=== PATIENT | female | born 1985 | race Hispanic/Latino ===

== ENCOUNTER 2017-01-17 08:52 | Day surgery (SDC) | payer OTHER ==
[2017-01-17 09:02] VITALS: BMI 27.1
[2017-01-17 09:37] VITALS: RESP 18
[2017-01-17 09:40] LABS: BASO # 0.1 K/uL (0.0-0.2); BASO % 1.3 % (0.0-2.0); EOS # 0.4 K/uL (0.0-0.7); EOS % 4.5 % (0.0-4.0); HEMATOCRIT 41.5 % (34.0-47.0); LYMPH # 3.5 K/uL (1.0-4.3); MEAN CORPUSCULAR HEMOGLOBIN 29.8 pg (27.0-31.0); MEAN CORPUSCULAR HGB CONC 33.1 g/dL (33.0-37.0); MEAN PLATELET VOLUME 7.7 fl (7.2-11.7); MONO # 0.4 K/uL (0.0-0.8); MONO % 3.9 % (0.0-10.0); NEUT # 5.3 K/uL (1.8-7.0); NEUT % 54.3 % (50.0-75.0); RED CELL DISTRIBUTION WIDTH 13.2 % (11.5-14.5); WHITE BLOOD COUNT 9.7 K/uL (4.8-10.8)
[2017-01-17 10:15] LABS: ALB/GLOB RATIO 1.5 (1.0-2.1); ALKALINE PHOSPHATASE 34 U/L (38-126); ALT/SGPT 54 U/L (9-52); AST/SGOT 40 U/L (14-36); BLOOD UREA NITROGEN 9 mg/dl (7-17); CALCIUM 9.8 mg/dL (8.4-10.2); CARBON DIOXIDE 23 mmol/L (22-30); CHLORIDE 106 mmol/L (98-107); GFR AFRICAN-AMERICAN > 60; GLUCOSE,RANDOM 96 mg/dL (65-105); POTASSIUM 4.2 MMOL/L (3.6-5.0); SODIUM 141 mmol/l (132-148); TOTAL PROTEIN 7.8 G/DL (6.3-8.2)
[2017-01-17] MEDS ORDERED: ePHEDrine 50 mg/ml Inj ONE (10:52)
[2017-01-17] MEDS ORDERED: Rocuronium 10 mg/ml (5 ml) ONE (10:52)
[2017-01-17] MEDS ORDERED: Succinylcholine 200 mg/10 ml Inj IV ONE (10:52)
[2017-01-17] MEDS ORDERED: Midazolam 2 MG/2 ML VIAL ONE (10:52)
[2017-01-17] MEDS ORDERED: Propofol 10 mg/ml Inj (20 ML) ONE (10:52)
[2017-01-17] MEDS ORDERED: Bupivacaine 0.5% Inj(30mL) ONE (11:03)
[2017-01-17] MEDS ORDERED: Lactated Ringer's 1,000 ML IV ONE ×3 (11:20→14:30)
[2017-01-17] MEDS ORDERED: Sodium Chloride 0.9% 100 ML IV ONE (11:30)
[2017-01-17] MEDS ORDERED: Neostigmine Methylsulfate 3mg/3ml Syringe IV ONE (13:13)
[2017-01-17] MEDS ORDERED: Lactated Ringer's 1,000 ML IV SCH (13:40)
[2017-01-17] MEDS ORDERED: Oxycodone/Acetaminophen 5/325 mg Tab PO PRN (14:02)
--- NOTE | 2017-01-17 14:05 | PCM.SURG1 ---
<Cayetano La - Last Filed: 01/17/17 14:03> Surgeon's Initial Post Op Note - Surgeon's Notes Surgeon: Dr. Pastrana Inspector Floor: Cayetano Flor PGY2, Fani FLORES Type of Anesthesia: General Endo Pre-Operative Diagnosis: Pelvic pain Operative Findings: scar tissues, pelvic lesions Post-Operative Diagnosis: Pelvic pain Operation Performed: Robotic lysis of adhesions, lesions biopsy Specimen/Specimens Removed: multiple pelvic lesions Estimated Blood Loss: EBL {In ML}: 10 Blood Products Given: N/A Drains Used: No Drains Post-Op Condition: Good Date of Surgery/Procedure: 01/17/17 Time of Surgery/Procedure: 14:05 <Jorge Pastrana - Last Filed: 01/19/17 10:12> Surgeon's Initial Post Op Note - Surgeon's Notes Pre-Operative Diagnosis: pelvic pain , abdominal pain , bladder pain , dyspareunia Operative Findings: multiple endometriosis implants on pelvic sidewall anterium rectum , abdominal wall Post-Operative Diagnosis: pelvic pain abdominal pain dyspareunia possible ovarian remnant possible endometirosis Operation Performed: excision of endometriosis , ureterolysis, excision of rectal mass
--- NOTE | 2017-01-17 14:08 | CP.SDSHP ---
Same Day Surgery H & P - History Proposed Procedure: robotic diagnostic laparoscopy Pre-Op Diagnosis: Pelvic pain - Previous Medical/Surgical History Previous Surgical History: hysterectomy - Allergies Allergies: Allergies hydromorphone [From Dilaudid] Allergy (Verified 01/17/17 09:04) SHORTNESS OF BREATH panic attack penicillin G procaine Allergy (Verified 01/17/17 09:04) RASH topiramate [From Topamax] Allergy (Verified 01/17/17 09:04) SHORTNESS OF BREATH panic attack - Physical Exam General Appearance: NAD Vital Signs: Vital Signs 01/17/17 01/17/17 01/17/17 09:31 09:36 13:36 Temperature 98.7 F 98.2 F Pulse Rate 92 H 92 H 98 H Respiratory 18 18 Rate Blood Pressure 141/88 155/93 H O2 Sat by Pulse 97 100 Oximetry 01/17/17 13:50 Temperature Pulse Rate 79 Respiratory 18 Rate Blood Pressure 135/85 O2 Sat by Pulse 100 Oximetry Mental Status: Alert & Oriented x3 Neuro: WNL Heart: WNL Lungs: WNL GI: WNL - {Optional Preform as Required} Abdomen: WNL Integument: WNL - Impression Pt. Evaluated Today:Candidate for Anesthesia & Procedure: Yes - Date & Time Date: 01/17/17 Time: 12:00 Short Stay Discharge - Short Stay Discharge Admitting Diagnosis/Reason for Visit: N80.0 Disposition: HOME/ ROUTINE Referrals: Jorge Pastrana [Primary Care Provider] - Follow-up: follow up with Dr. Pastrana in 1-2 weeks. NO heavy lifting for 1 month Ok to take shower tomorrow. Keep glues on. Take pain med as needed. Instructions: Exploratory Laparoscopy (DC)
[2017-01-17 17:29] VITALS: BP 139/90; PULSE 96; TEMP 98.8; O2SAT 98
--- NOTE | 2017-01-21 12:13 | OP ---
PROCEDURE DATE: 01/17/2017 SURGEON: Jorge Pastrana MD ASSISTANTS: Leonard Killian MD and Louisa Sparks PA-C. PREOPERATIVE DIAGNOSES: Pelvic pain, dyspareunia, abdominal pain, right leg pain, bladder pain and history of endometriosis. POSTOPERATIVE DIAGNOSES: Pelvic pain, dyspareunia, abdominal pain, right leg pain, bladder pain and history of endometriosis plus pelvic adhesions and right ovarian remnant syndrome. PROCEDURE PERFORMED: Cystoscopy with bilateral ureteral catheterization and retrograde injection of indocyanine green to the right and left ureter, robotic da Shelbi laparoscopy, bilateral ureterolysis, excision of endometriosis, and to be dictated separately by Dr. Leonard Killian an excision of a right rectal mass. COMPLICATIONS: None. SAMPLES: Including left periureteral tissue, right periureteral tissue, left periureteral biopsy, left ovarian fossa, left pelvic sidewall, inferior rectal lesion, right abdominal wall, right periureteral tissue, right uterosacral biopsy, left periureteral biopsy, left peritoneal lesion, left ovarian side mass. DRAINS: Martinez catheter. ESTIMATED BLOOD LOSS: 100 mL. BRIEF HISTORY: The patient is a 31-year-old with an extremely long history of abdominopelvic pain and endometriosis for which she had undergone multiple surgical procedures including a vaginal hysterectomy followed by laparoscopic surgery, multiple surgeries, bilateral oophorectomy and excision of endometriosis. She had persistent pain, mostly on the right hand side. Prior to the surgery, she attempted multiple medical treatments including physical therapy, injection therapy, pain medication, anti-inflammatories, neuromodulators, antidepressants and narcotics. She had failed the above treatments. Prior to the surgery, she was counseled with regards to risk and benefits of the procedure. We reviewed the likelihood of the procedure to identify the cause of her problem and the likelihood of successful outcome and alternative modalities of treatment and potential risks. She also understood that due to the complicated history, the surgery would have above-average risk. Ample opportunity was given to the patient to ask and receive questions. The patient was counseled and demonstrated understanding of the potential risks of the procedures including, but not limited to bleeding, infection, bladder injury, bowel injury and ureteral injury. At this point, the patient was taken to the OR.Given the risk of ureteral injury due to the surgery , ureteral stenting with injection of fluorescent dye is an essential element of this operation . DESCRIPTION OF PROCEDURE: After the consent was obtained, the patient was brought to the operating room and placed on the operating table in the supine position. Anesthesia was induced and the patient was placed in the dorsal lithotomy position, where significant padding in any area prone to pressure. The patient was prepped and draped in the standard fashion and a timeout was performed. At this point, the cystoscope was introduced into the bladder under direct vision. Tony-cystoscopy was performed and attention was paid to both ureteral orifices, which were in a normal anatomical position. The left ureteral orifice was catheterized with a Ethiopian open-end ureteral catheter. A solution of ICG green was injected for a total of 4 mL into the left ureter after ureteral catheter was advanced into the distal ureter. The ureteral catheter was then removed. Attention was paid to the right ureteral catheter. At this point, the urethral catheter was advanced to the level of the right distal ureter. An additional 4 mL of IC green were injected into the right ureter. The ureteral catheter was then removed. The bladder was inspected and noted to be free of tumors, stones, bleeding sources, no evidence of insufficiency status was noted. The cystoscope was then removed and a 16-Ethiopian Martinez catheter was placed. At this point, attention was of the abdomen where a standard open laparoscopy technique was performed, and after entering the abdominal cavity in a blunt way, a trocar was placed. Under direct visualization, three additional trocars were inserted, left upper quadrant, left mid quadrant and right upper quadrant. At this point, the da Shelbi Xi robot was docked and targeted and procedure was commenced. The finding was as follows. The patient was a post hysterectomy. There was evidence of inflammatory lesions and granulomas diffused throughout the pelvis. There were also some adhesions between the sigmoid colon and a nodule in the anterior rectal area. The nodule was about 1.5-2 cm in size. There were also some inflammatory lesions by the prior appendectomy on the abdominal wall on the right hand side. Also, there appears to be some significant pelvic congestion, mostly on the left hand side. The procedure commenced on the left hand side where a granuloma was visualized on the left hand side ride by the former left ovarian pedicle. After identifying the ureter, utilizing IC green and fluorescent technique, the granuloma area was dissected off. Because of extreme vascularity of the area, a venous plexus was entered and the bleeding was controlled using monopolar coagulation. A sample was sent then to pathology. At this point, attention was in the left pelvic sidewall where an extensive dissection was performed, mostly freeing the left venous plexus, there appeared to be extremely tortuous with the hope that this decompression would help resolve some of the patient's symptomatology. Again, the dissection was performed with great attention to avoid the ureter by lateralizing the left ureter. After this was done, there appeared to be less congestion on the left pelvic sidewall. At this point, attention was on the right pelvic side where again a granulomatous lesion was noticed on the pelvic brim. This appeared to be inflamed. The ureter was identified and a dissection again was performed with care not to injure the bladder and/or the underlying uterine vessels. Again, some slow bleeding was encountered and controlled with monopolar cautery. The rectal lesion was then identified and it was excised by Dr. Killian who will dictate the procedure separately. Attention was then in the left pelvic sidewall where after identifying the ureter, the peritoneum was elevated right on top of the ureter and a dissection was performed, lateralizing the ureter and excising an area of peritoneum containing erythematous tissue such as of endometriosis. In addition, a lesion was excised on the right abdominal sidewall that appeared to be inflamed erythematous, and additionally, another lesion was in the left pelvic rim right overlying the left ureter. This was also excised. At this point, rest of the pelvis and the abdominal cavity were examined with great care. There were no more lesions or any suspicious inflammatory area. The pelvis was irrigated, and at this point, the robot was undocked. The instruments were removed. The abdomen was desufflated. The incision was closed in layers with 0 PDS for the fascia and 4-0 Monocryl for the skin and Dermabond. At the end of the procedure, all instruments were correct. The patient tolerated the procedure well and was taken to recovery room in excellent condition. Jorge Pastrana MD [facility] SYSTEM[facility]
--- NOTE | 2017-01-28 10:32 | PCM.OP ---
Operative Report - Operative Report Date of Surgery/Procedure: 01/17/17 Time of Surgery/Procedure: 08:00 Surgeon: Dr. Maddy Killian Call Center Agent: Dr. Jorge Pastrana Anesthesia/Sedation: general/Dr. Holman Pre-Operative Diagnosis: Endometriosis, partial SBO with pelvic congestion Post-Operative Diagnosis: same Indication for Surgery: Endometriosis and partial SBO Operative Findings: same Procedure/Operation Description: 1-Excision anterior rectal endometriosis. Brief History: Dr. Victoriano yu already intiated the robotic procedure when he noticed a lesion on the anterior rectal wall consistent with possible endometiosis. Intraoperative general surgery consultation was requested. Description of the Procedure: Dr. Pastrana had already initiated the robotic procedure (separate dictaion Dr. Pastrana). With the robotic consule the area of the anterior rectal wall lesion was examined. Using blunt and sharp dissection with the aid of electrocautery the area in question was incised circumferentially with a small margin of normal tissue. The lesion was lifted from the rectal wall completely and sent to pathology as a separate specimen. The area of dissection was examined and hemostasis was deemed adeqaute. The operation was then turned over to Dr. Pastrana (separate dictaion Dr. Pastrana). Estimated Blood Loss: 2 cc Complications: none Specimen: anterior alejandro-recta/rectal endometriosis Discharge & Condition: stable
== END 2017-01-17 18:10 | disposition home or self-care (01) ==
LOC: H.OPSURG 08:52
PROVIDERS: ATTEND Obstetrics & Gynecology Reproductive Endocrinology
DX: N80.0 Endometriosis of uterus (principal); J45.909 Unspecified asthma, uncomplicated; I10 Essential (primary) hypertension; R10.2 Pelvic and perineal pain; N94.19 Other specified dyspareunia; M79.661 Pain in right lower leg; R39.89 Other symptoms and signs involving the genitourinary system; N73.6 Female pelvic peritoneal adhesions (postinfective)
CPT/HCPCS: 36415; 45171; 52005; 58662; 80053; 85025; 86850; 86900; 88305; 88313; C1729; J0330; J2001; J2250; J2270; J2704; J2710; J3010; J7030; J7040; J7120